=== PATIENT | female | born 2000 | race Caucasian/White ===

== ENCOUNTER 2023-07-15 22:38 | Emergency (ER) | payer OTHER, SELFPAY ==
[2023-07-15] MEDS ORDERED: Acetaminophen 500 MG TAB ONE (22:53)
== END 2023-07-15 23:27 | disposition home or self-care (01) ==
LOC: MADERS 22:38
DX: S62.634A Displaced fracture of distal phalanx of right ring finger, initial encounter for closed fracture (principal); W20.8XXA Other cause of strike by thrown, projected or falling object, initial encounter